=== PATIENT | male | born 1955 | race Caucasian/White ===

== ENCOUNTER 2020-06-12 16:49 | Inpatient (IN) | payer OTHER ==
[~2020-06-12] VITALS: Ht 185.4 cm; Wt 106.6 kg
--- NOTE | ~2020-06-12 | CON ---
[address] [address] CONSULTATION Name: WILLIAM MORENO Room: [address] IN M.R.#: [id number] Admission: 06/12/20 Attend Phys: Lev Lynn MD Discharge: Date of : 59 Report #: [id number] THIS REPORT FOR: //name// cc: LASHAE Atkinson family physician/PCP LASHAE - [place] family physician/PCP ~ THIS REPORT FOR: //name// CC: LASHAE physician/PCP Lev Lynn DATE OF SERVICE: 06/14/2020 HISTORY OF PRESENT ILLNESS: This is a 65-year-old male patient who was evaluated by me for generalized weakness of about 3 years' duration. The history is not very clear. It looks like the weakness is going on for 5-6 years. First, he told me that he did not see any doctor for this, but subsequently he told me that he has seen doctors for this. He said they told him his RBC count was high and in fact they were removing blood from him every periodically, but that did not help him. He also had some trouble with the left elbow, which is going on for long time and he had surgery for that. He has gout and his arms are swollen. Surprisingly, his legs are not swollen. REVIEW OF SYSTEMS: A 14-point review of system was carried out. He has gout. He has swelling. He has a left elbow problem and he has polycythemia. He does have history of some hypertension, but is poorly defined. That was his relevant 14-point review of system. PAST MEDICAL HISTORY: Positive for gout. FAMILY HISTORY: Unremarkable. SOCIAL HISTORY: He says he does not smoke. PHYSICAL EXAMINATION: Indicate the patient is alert, responsive. I am not sure about his memory. His speech looks intact. His cranial nerve examination is unremarkable. Neuromuscular examination is very difficult because he had surgery on the left arm and he has swelling on both hands. In the lower extremities, He does not have much swelling. His reflexes appear to be present. His position sense is intact. His tone looks unremarkable. I could not look at the fundus. The patient's cardiac and respiratory examinations appear unremarkable. Some time his plantar looks upgoing, but I cannot tell about withdrawal. IMPRESSION AND PLAN: Pretty difficult to form in this patient. It is a longstanding process. He needs workup. I will suggest doing some PT, OT evaluation if that is okay with Ortho to see how bad [place] [address] CONSULTATION Name: WILLIAM MORENO Room: [address] IN [facility]#: [id number] Admission: 06/12/20 Attend Phys: Lev Lynn MD Discharge: Date of : 59 Report #: [id number] is going to need a lot of workup. It is going on for 5 years. I think the workup will include doing an MRI of the brain as he has some white matter ischemic changes and looks like upgoing plantar and we also may do an MRI of the C-spine. He will need a CPK. He will need a sed rate. He needs an EMG. He just wants things to be fixed right away and I told him that it is unlikely. He may need a Hematology evaluation. He did have his sed rate, but that was in 2012 and that time, it would appear it was unremarkable. I will discuss the patient with you and go with the further management as an inpatient or outpatient. I spent about 50 minutes of time and majority of his time spent reviewing the record and his imaging studies and counseling and coordinating. By: 1020 1223Plouie Sampson MD /nt
[~2020-06-12 16:49] MED LIST: BACTRIM DS TAB1 EACH PO; DOXYCYCLINE 10100 MG PO; INDOMETHACIN 2525 MG PO; LEVAQUIN 750 M750 MG PO; LISINOPRIL20 MG PO; NOHOMEMEDICATIONS; NORCO 5-325 TA1 EACH PO; PERCOCET 5-3251 EACH PO; PREDNISONE 10 M10 MG PO; PYRIDIUM200 MG PO
[2020-06-12 17:04] VITALS: BP 134/99
[2020-06-12 17:55] LABS: HEMOGLOBIN 19.2 gm/dL (14.0-18.0); MCH 32.6 pg (26.0-34.0); MCHC 35.5 g/dL (28.0-37.0); MPV 9.2 fl. (7.2-11.1); NUCLEATED RBCS 0 /100WBC; PLATELET COUNT* 315 thou/uL (150-400); RBC 5.87 mil/uL (4.50-6.00); RDW-CV 14.4 % (10.5-14.5); WBC 13.5 thou/uL (4.0-11.0)
[2020-06-12 18:02] LABS: CALCIUM 9.4 mg/dL (8.5-10.1); CREATININE 1.1 mg/dL (0.6-1.3); POTASSIUM 3.9 mmol/L (3.5-5.1)
[2020-06-12 18:06] LABS: APTT 30.6 Seconds (25.0-31.3); INR 1.1; PROTIME 11.4 Seconds (9.20-11.50)
[2020-06-12 18:13] LABS: ALBUMIN 3.2 g/dL (3.4-5.0); TOTAL BILIRUBIN 4.6 mg/dL (<0.1-1.0); TOTAL PROTEIN 8.6 g/dL (6.4-8.2); URIC ACID* 7.6 mg/dL (2.6-7.2)
[2020-06-12 18:29] LABS: ABSOLUTE EOSINOPHILS 0.1 thou/uL (0.0-0.7); ABSOLUTE LYMPHOCYTES 0.7 thou/uL (0.8-5.3); ABSOLUTE MONOCYTES 1.1 thou/uL (0.0-1.2); ABSOLUTE NEUTROPHILS 11.6 thou/uL (1.6-8.1)
[2020-06-12 18:30] LABS: PLATELET ESTIMATE ADEQUATE
[2020-06-12 20:00] VITALS: BP 144/95
[2020-06-12 21:00] VITALS: BP 144/95
[2020-06-12 21:16] VITALS: BP 145/97
[2020-06-13] VITALS (7 sets, daily range): BP systolic 103–149; BP diastolic 66–91
[2020-06-13 01:51] LABS: URINE BLOOD NEGATIVE (Negative); URINE CLARITY CLEAR; URINE COLOR DARK YELLOW; URINE GLUCOSE-RANDOM TRACE (Negative); URINE KETONES 1+ (Negative); URINE LEUKOCYTES-REFLEX NEGATIVE (Negative); URINE PROTEIN 1+ (Negative); URINE SPECIFIC GRAVITY <= 1.005 (1.005-1.030); URINE UROBILINOGEN >= 8.0 E.U./dl (0.2-1.0)
[2020-06-13 01:52] LABS: URINE BILIRUBIN 3+ (Negative); URINE NITRITE-REFLEX POSITIVE (Negative)
[2020-06-13 01:54] LABS: ICTOTEST (BILI CONFIRMATORY) Positive (Negative)
[2020-06-13 11:00] LABS: CALCIUM 8.8 mg/dL (8.5-10.1); CREATININE 1.2 mg/dL (0.6-1.3); MAGNESIUM 2.4 mg/dL (1.8-2.4); POTASSIUM 3.8 mmol/L (3.5-5.1)
--- NOTE | 2020-06-13 15:18 | EKG ---
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: CARLOS : 1955 Requested By: Ray Bennett Order Number: [id number] MD: Alex Clark Measurements Intervals [place] Rate: 120 P: -42 MA: 191 QRS: -56 QRSD: 104 T: 20 QT: 329 QTc: 465 Interpretive Statements Sinus tachycardia Consider RVH w/ secondary repol abnormality Inferior infarct, old Baseline wander in lead(s) V2,V3 No previous ECG available for comparison Electronically Signed On 06-13-2020 15:17:52 CDT by Alex Clark [email or web address] <ELECTRONICALLY SIGNED> By: Alex Clark MD, FAC 06/13/20 1517 1737 1737 Alex Clark MD, FAC /EPI
[2020-06-13 15:34] LABS: % SATURATION 31 % (20-39); IRON 57 ug/dL (50-175)
[2020-06-14] VITALS (7 sets, daily range): BP systolic 137–170; BP diastolic 69–83
--- NOTE | 2020-06-14 18:06 | PATH ---
[address] [address] PATHOLOGY RPT PROCEDURE Name: WILLIAM MORENO Room: [facility] IN M.R.#: [id number] Admission: 06/12/20 Date of : 59 Discharge: Report #: [id number] Path Case #: [id number] [facility] Accession Number: [id number] . 01 Material submitted: . elbow - LEFT ELBOW GOUTY TOPHI/BURSA. Modifiers: left . 01 Clinical history: . GOUTY ARTHROPOTHY OF LEFT ELBOW, DYSPNEA, WEAKNESS, GOUT, ALCOHOL ABUSE . 02 Diagnosis: "Left elbow gouty tophi/bursa", excision: - Synovium/bursa with amorphous crystalline material showing foreign body type giant cell reaction. (See comment). (WILLIAM:shawn; 06/14/2020) MBR 06/14/2020 1603 Local . 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 No polarizable material is identified. Other possible etiologies include a reaction to other foreign material. Correlation with clinical history, additional laboratory data and radiographic findings is required. (CLW:shawn; 06/14/2020) . 02 Electronically signed: . Allison Salcedo MD, Pathologist NPI- [id number] . 01 Gross description: . The specimen is received in formalin, labeled "Fawad Juarez elbow gouty tophi/bursa". Received is a segment of pale lama tissue measuring 0.1 x 4.7 x 2.5 cm in this dimensions. Sectioning reveals chalky cut surfaces throughout. The specimen is submitted representatively in cassette A1. (CAA; 06/13/2020) QAC/QAC 06/13/2020 1819 Local . 02 Pathologist provided ICD-10: M10.9, R06.00, R53.1 . 02 CPT . 403795 Specimen Comment: A courtesy copy of this report has been sent to [phone], [phone] Specimen Comment: [phone] Specimen Comment: Report sent to / DR MORENO Performed at: [address] [place] [address] PATHOLOGY RPT PROCEDURE Name: YANET MORENORICK YU Room: [address] ADM IN M.R.#: [id number] Admission: 06/12/20 Date of : 59 Discharge: Report #: [id number] Path Case #: [id number] [address] [facility] [address], [place] [id number] MD Luke Ruth MD Phone: [phone] Performed at: [address] [facility] [address] [place] [id number] MD David Pacheco MD Phone: [phone]
[2020-06-15 00:53] VITALS: BP 159/84
[2020-06-15 04:41] VITALS: BP 140/85
[2020-06-15 08:00] VITALS: BP 166/84
[2020-06-15] MEDS ORDERED: PRENATAL PO (10:02)
[2020-06-15] MEDS ORDERED: VITAMIN B-1100 M1 PO (10:02)
[2020-06-15] MEDS ORDERED: ALLOPURINOL 10100 M3 PO (10:02)
[2020-06-15] MEDS ORDERED: LIDOPATCH1 EACH TOP (10:02)
[2020-06-15] MEDS ORDERED: COLCRYS0.6 MG PO (10:02)
[2020-06-15] MEDS ORDERED: PAIN RELIEVER500 MG PO (10:02)
[2020-06-15] MEDS ORDERED: CELEBREX 200 M200 M1 PO (10:02)
[2020-06-15] MEDS ORDERED: HYDROCODON-ACE1 EAC7 PO (10:04)
[2020-06-15] MEDS ORDERED: KEFLEX500 M1 PO (10:04)
[2020-06-15 12:04] VITALS: BP 180/98
--- NOTE | 2020-06-15 12:19 | OP ---
[address] [address] OPERATIVE REPORT Name: WILLIAM MORENO Room: [address] IN .R.#: [id number] Admission: 06/12/20 Attend Phys: Lev Lynn MD Discharge: Date of : 59 Report #: [id number] THIS REPORT FOR: //name// cc: LASHAE Atkinson family physician/PCP LASHAE Atkinson family physician/PCP ~ CC: [facility] physician/PCP Lev Lynn DATE OF SERVICE: 06/13/2020 PREOPERATIVE DIAGNOSES: Acute gouty flareup with gouty arthropathy and bursitis of the left elbow as well as a chronic triceps tendon avulsion tear. POSTOPERATIVE DIAGNOSES: Acute gouty flareup with gouty arthropathy and bursitis of the left elbow as well as a chronic triceps tendon avulsion tear. SURGERIES PERFORMED: 1. Left elbow olecranon bursectomy of the gouty tophi. 2. Triceps tendon repair. SURGEON: Jn Dominguez D.O. STRAIGHT RULING MACHINE OPERATOR: Zach Horvath D.O. ANESTHESIA: General anesthetic. DESCRIPTION OF PROCEDURE: Received Rocephin 1 g IV piggyback preoperatively, has been on scheduled antibiotics. SPECIMEN: The patient's specimen is that of gouty tophi bursa. COMPLICATIONS: He has no complications. DRAINS. No drains otherwise. ESTIMATED BLOOD LOSS: 5 mL. The patient's gross findings at the time prior to surgery demonstrated that this gentleman had acute gouty flareup, multiple tightness to his hands bilaterally, the elbows and other joint surfaces. Today, demonstrated extreme tenderness as well of the left elbow region with some weakness of his triceps as well. Previous radiographs showed there is an avulsion injury to the triceps area of this left elbow. Intraoperative findings correlate with large bursal gouty tophi sac. He demonstrated the avulsed triceps was about 3-4 cm proximal to the avulsed area and post-placement of FiberTape sutures through the olecranon, we got him down to a better position of the arm for the triceps at least 1 cm, [place] [address] OPERATIVE REPORT Name: WILLIAM MORENO AIMEE Room: [address] IN .R.#: [id number] Admission: 06/12/20 Attend Phys: Lev Lynn MD Discharge: Date of : 59 Report #: [id number] his strength should slightly improved. In this acute gouty flareup, I did not elect to open this up and risk further damage as this could be even repaired later if needed with a graft. SURGERY IN DETAIL: The patient was taken to the operating room and placed on table, given the benefit of a general anesthetic, well-padded tourniquet placed on his left upper extremity, underwent a chlorhexidine prep and sterile draping for left elbow surgery. Timeout was called and verified by everyone for the left elbow. At this point in time, I Esmarched the extremity and inflated the tourniquet to 250 mmHg. Midline incision was made after the timeout was accomplished, the incision was made with a 10 blade scalpel through skin and subcutaneous tissue. Getting down to the bursal sac area, we easily elevated it off the olecranon area with scissors as well as scalpel technique. Care taken to protect the ulnar nerve at all times. Once that sac was completely removed, we did go ahead and at this point in time copiously irrigated with saline. We found avulsed triceps tendon area and put a kabiyk-ua-qmtsa FiberTape SutureLasso proximal to it and then ran the suture down through the drill hole I drilled through the olecranon, passed that sutured through and tied it down giving him better function of the triceps. At this stage, again copiously irrigated. Tourniquet was released, easily maintained hemostasis. Inverted 2-0 Monocryl were used to tie down the space where the bursal sac was subcutaneously and then we did minuwa-[id number] sutures of nylon skin. Xeroform, 4 x 4's, Kerlix, soft roll, well padded Nasir wrap dressing was applied. He was transferred off the table and taken to recovery in stable condition. I attest I was present for all critical aspects of surgery. Needle, instrument, and sponge counts were correct. <ELECTRONICALLY SIGNED> By: Jn Dominguez DO 06/15/20 1219 0806 0834Jn Dominguez DO /allen
[2020-06-15 14:12] VITALS: BP 180/98
== END 2020-06-15 14:45 | disposition home or self-care (01) | DRG 501 ==
LOC: M.ERS 16:49 → M.2W 18:40 → M.TBA-ER 18:40 → M.2W 20:56
PROVIDERS: Family Medicine; Internal Medicine; ADMIT Internal Medicine; ATTEND Internal Medicine
PROC: 0MB40ZZ Excision of Left Elbow Bursa and Ligament, Open Approach (ICD-10-PCS; principal; 2020-06-13)
PROC: 0LQ40ZZ Repair Left Upper Arm Tendon, Open Approach (ICD-10-PCS; principal; 2020-06-13)
DX: M70.32 Other bursitis of elbow, left elbow (principal); J98.11 Atelectasis; M10.022 Idiopathic gout, left elbow; S46.312A Strain of muscle, fascia and tendon of triceps, left arm, initial encounter; I10 Essential (primary) hypertension; Z96.652 Presence of left artificial knee joint; D45 Polycythemia vera; E83.118 Other hemochromatosis; Z20.828 Contact with and (suspected) exposure to other viral communicable diseases; X58.XXXA Exposure to other specified factors, initial encounter; Z82.49 Family history of ischemic heart disease and other diseases of the circulatory system; Y93.89 Activity, other specified; Y92.89 Other specified places as the place of occurrence of the external cause; Y99.8 Other external cause status